=== PATIENT | male | born 1965 | race Caucasian/White ===

== ENCOUNTER 2020-05-07 21:59 | Emergency (ER) | payer OTHER ==
[2020-05-07 23:01] LABS: ABSOLUTE EOSINOPHILS # (AUTO) 0.1 10^3/uL (0.0-0.6); ABSOLUTE LYMPHOCYTES (AUTO) 1.8 10^3/uL (0.5-4.7); ABSOLUTE MONOCYTES (AUTO) 1.8 10^3/uL (0.1-1.4); ABSOLUTE NEUT (AUTO) 8.3 10^3/uL (1.7-8.2); BASOPHILS % (AUTO) 0.2 % (0-2); EOSINOPHILS % (AUTO) 0.5 % (0-6); LYMPHOCYTES % (AUTO) 14.8 % (13-45); MEAN CORPUSCULAR HEMOGLOBIN 33.3 pg (27.0-33.4); MEAN CORPUSCULAR HGB CONC 34.4 g/dL (32.0-36.0); MEAN CORPUSCULAR VOLUME 97 fl (80-97); MONOCYTES % (AUTO) 14.8 % (3-13); PLATELET COUNT 329 10^3/uL (150-450); RED BLOOD COUNT 3.31 10^6/uL (4.35-5.55); RED CELL DISTRIBUTION WIDTH 15.5 % (11.5-14.0); SEGMENTED NEUTROPHILS % (AUTO) 69.7 % (42-78); TOTAL CELLS COUNTED % (AUTO) 100 %
[2020-05-07 23:04] LABS: ALBUMIN 3.1 g/dL (3.5-5.0); ALKALINE PHOSPHATASE 122 U/L (38-126); ANION GAP 7 (5-19); ASPARTATE AMINO TRANSFERASE 44 U/L (17-59); BILIRUBIN,DIRECT 0.3 mg/dL (0.0-0.4); BILIRUBIN,TOTAL 0.5 mg/dL (0.2-1.3); BLOOD UREA NITROGEN 8 mg/dL (7-20); CALCIUM 9.2 mg/dL (8.4-10.2); CARBON DIOXIDE 27 mmol/L (22-30); CHLORIDE 101 mmol/L (98-107); GLUCOSE 130 mg/dL (75-110); POTASSIUM 3.5 mmol/L (3.6-5.0); TOTAL PROTEIN 5.8 g/dL (6.3-8.2)
--- NOTE | 2020-05-07 23:19 | RADIOLOGY REPORT (SQ) ---
EXAM DESCRIPTION: XR CHEST 1 VIEW COMPLETED DATE/TME: 05/07/2020 22:36 CLINICAL HISTORY: 55 years, Male, SOB, fever and cough COMPARISON: None. NUMBER OF VIEWS: 1 TECHNIQUE: Portable chest LIMITATIONS: None. FINDINGS: The heart size is normal. Extensive airspace opacity in the left perihilar region. No pneumothorax IMPRESSION: Left perihilar pneumonia copyright 2011 [employer]- All Rights Reserved
--- NOTE | 2020-05-07 23:43 | ER Document Report ---
ED General - General Chief Complaint: Cough Stated Complaint: COUGH Time Seen by Provider: 05/07/20 23:42 Primary Care Provider: DUANE AKHTAR MD [Primary Care Provider] - Follow up as needed Mode of Arrival: Ambulatory Information source: Patient Notes: 05/07/20 22:22 - ED Nursing Note by CAR [employer] Acct Num: [id number] : 1965 Patient Age: 55 pt arrived to ED via EMS from home c/o cough and fever. EMS reports cough has b een present for the past month and the fever started today. EMS reports pt vomited today due to excessive coughing. EMS reports pt has has a headache today. EMS reports pt has had a negative covid test over a month ago. EMS reports pt become a little dizzy upon ambulating. EMS reports v/s temp 101.8, b/p 121/76, pulse 94 and a BGL 126. EMS reports giving pt 975mg tylenol PO, 125mg solumedrol IV and an A&A neb treatment. EMS reports pt's difficulty breathing improved with neb treatment. EMS reports placing a 18g to the left AC. pt's current temp is 100.0. pt's oxygen saturation is 97% on room air. pt is able to move all extremities without difficulty. pt reports having respiratory issues for over a year. pt reports the respiratory issues began when the cleaning chemicals were changed at his place of work. p reported taking 2 months off from work and all his respiratory symptoms were completely gone. pt reports respiratory issues since being back at work. pt placed on tele monitor. blood was drawn and sent to lab. pt is able to speak in clear and complete sentences. NAD noted at this time. continue to monitor. Initialized on 05/07/20 22:22 - END OF NOTE MY NOTES 55-year-old male arrives by POV with chief complaint of fever chills and paroxysmal coughing. Patient works at the [employer]. 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 Patient reports for the last year while he was working at the [employer] he had coughing symptoms as well. During a 2-week time period between the [facility] which began in March he had no coughing symptoms. He takes methotrexate for his rheumatoid arthritis patient has paroxysmal cough on and 101.8 temperature at home. Tylenol was taken and it was decreased but he is having sweating of forehead while I was speaking to him in the room around 2345. Patient denies any coronavirus contact. His is doing well and she will be the caregiver. She and he come down to [place] for weekend stays. They will drive back to [place] to work on the week days.. Patient does admit to some chills and fever. He denies any sore throat rhinorrhea skin rash TRAVEL OUTSIDE OF THE [place] IN LAST 30 DAYS: No - HPI Onset: This morning Onset/Duration: Sudden, Persistent, Worse Quality of pain: Achy Severity: Moderate Pain Level: 2 Associated symptoms: Productive cough, Fever, Headache, Nausea, Sweating, Weakness. denies: Vomiting, Rhinnorhea, Sinus pain/drainage, Shortness of breath, Slow to respond Exacerbated by: Walking, Coughing Relieved by: Denies Similar symptoms previously: Yes Recently seen / treated by doctor: No Past Medical History - General Information source: Patient - Social History Smoking Status: Former Smoker Cigarette use (# per day): No Chew tobacco use (# tins/day): No Smoking Education Provided: No Frequency of alcohol use: Occasional Drug Abuse: None Lives with: Family Family History: Reviewed & Not Pertinent Patient has suicidal ideation: No Patient has homicidal ideation: No - Past Medical History Cardiac Medical History: Reports: Hx Hypertension Renal/ Medical History: Reports: Hx Kidney Stones Musculoskeletal Medical History: Reports Hx Arthritis Past Surgical History: Reports: Hx Orthopedic Surgery, Hx Tonsillectomy Review of Systems - Review of Systems Constitutional: See HPI, Chills, Diaphoresis, Fever, Malaise, Weakness, Recent illness EENT: See HPI, Nose congestion. denies: Nose discharge, Sinus pressure, Sinus discharge, Throat pain, Throat swelling, Mouth pain, Mouth swelling, Dental problem Cardiovascular: See HPI, Dizziness, Lightheaded Respiratory: See HPI, Cough, Wheezing Gastrointestinal: No symptoms reported Genitourinary: No symptoms reported Male Genitourinary: No symptoms reported Musculoskeletal: No symptoms reported Skin: No symptoms reported Hematologic/Lymphatic: No symptoms reported Neurological/Psychological: See HPI, Weakness, Headaches. denies: Paralysis, Seizure, Lost consciousness Physical Exam - Vital signs Vitals: Temp 100.0 F 05/07/20 22:00 Interpretation: Tachycardic, Tachypneic, Febrile - General General appearance: Alert - HEENT Head: Normocephalic, Atraumatic Eyes: Normal Extraocular movements intact: Yes Eyelashes: Normal Pupils: PERRL Ears: Normal Tympanic membrane: Normal Sinus: Normal Mouth/Lips: Normal Mucous membranes: Normal Pharynx: Normal Neck: Normal - Respiratory Respiratory status: No respiratory distress, Tachypnea Chest status: No pleuritic chest pain Breath sounds: Productive cough, Wheezing Chest palpation: Normal - Cardiovascular Rhythm: Tachycardia Heart sounds: Normal auscultation Murmur: No - Abdominal Inspection: Normal Distension: No distension Bowel sounds: Normal Tenderness: Nontender Organomegaly: No organomegaly - Rectal Prostate: Other - deferred - Genitourinary Scrotum: Other - deferred - Back Back: Normal - Extremities General upper extremity: Normal inspection General lower extremity: Normal inspection - Neurological Neuro grossly intact: Yes Cognition: Normal Orientation: AAOx4 [place] Coma Scale Eye Opening: Spontaneous Marcel Coma Scale Verbal: Oriented Marcel Coma Scale Motor: Obeys Commands [place] Coma Scale Total: 15 Speech: Normal Motor strength normal: LUE, RUE, LLE, RLE Sensory: Normal - Psychological Associated symptoms: Normal affect - Skin Skin Temperature: Warm Skin Moisture: Dry Course - Vital Signs Vital signs: Temp Pulse Resp BP Pulse Ox 98.7 F 14 136/76 H 97 05/08/20 00:01 05/08/20 00:01 05/08/20 00:01 05/08/20 00:01 - Laboratory Result Diagrams: 05/07/20 22:11 05/07/20 22:11 Laboratory results interpreted by me: 05/07/20 05/07/20 05/07/20 22:11 22:11 23:30 WBC 12.0 H RBC 3.31 L Hgb 11.0 L Hct 32.0 L RDW 15.5 H [place] % (Auto) 14.8 H Absolute Neuts (auto) 8.3 H Absolute Monos (auto) 1.8 H Sodium 135.4 L Potassium 3.5 L Glucose 130 H Total Protein 5.8 L Albumin 3.1 L Ur Leukocyte Esterase TRACE H - Diagnostic Test Radiology reviewed: Reports reviewed - left perihilar pneumonia - EKG Interpretation by Me EKG shows normal: Sinus rhythm Rate: Normal Rhythm: NSR - With [address] elevation and no ST depression and no T wave elevation and no T wave depression and axis within normal limits. Discharge - Discharge Clinical Impression: Fever Qualifiers: Fever type: unspecified Qualified Code(s): R50.9 - Fever, unspecified Pneumonia Qualifiers: Pneumonia type: due to unspecified organism Laterality: left Lung location: unspecified part of lung Qualified Code(s): J18.9 - Pneumonia, unspecified organism Condition: Good Disposition: HOME, SELF-CARE Additional Instructions: Follow-up with personal doctor this week return to ER as needed take medicine as directed encourage fluids Prescriptions: Dexamethasone [Decadron 4 Mg Tablet] 4 mg PO DAILY #5 tablet Hydrocodone Bit/Homatropine [Hycodan Syrup 5-1.5 mg/5 ml Ud Cup] 5 ml PO BID #120 ml Albuterol Sulfate [Proair HFA Inhalation Aerosol 8.5 gm MDI] 2 puff IH Q4H PRN #1 mdi PRN Reason: Azithromycin [Zithromax 250 mg Tablet] 250 mg PO ASDIR PRN #6 tablet PRN Reason: Forms: Return to Work Referrals: DUANE AKHTAR MD [Primary Care Provider] - Follow up as needed
[2020-05-07 23:55] LABS: APPEARANCE,URINE CLEAR; BILIRUBIN,URINE NEGATIVE (NEGATIVE); COLOR,URINE STRAW; GLUCOSE, URINE NEGATIVE (NEGATIVE); KETONES,URINE NEGATIVE (NEGATIVE); LEUKOCYTE ESTERASE,URINE TRACE (NEGATIVE); NITRITE,URINE NEGATIVE (NEGATIVE); PROTEIN,URINE NEGATIVE (NEGATIVE); URINE SPECIFIC GRAVITY 1.004; UROBILINOGEN,URINE NEGATIVE mg/dL (<2.0)
[2020-05-08] MEDS ORDERED: CEFTRIAXONE INJ 1000 MG VIAL IV ONE (00:09)
[2020-05-08] MEDS ORDERED: AZITHROMYCIN INJ 500 MG VIAL IV ONE (00:10)
[2020-05-08] MEDS ORDERED: DEXAMETHASONE SOD PHOS INJ 10 MG/1 ML VIAL IV ONE (00:11)
[2020-05-08] MEDS ORDERED: DEXAMETHASONE SOD PHOSPHATE INJ 4 MG/1 ML VIAL ONE ×2 (02:55→03:00)
[2020-05-08 03:16] VITALS: BP 123/81
--- NOTE | 2020-05-08 17:16 | EKG REPORT ---
SEVERITY:- NORMAL ECG - SINUS RHYTHM : Confirmed by: Nick Joyner 08-May-2020 17:15:25
== END 2020-05-08 03:29 | disposition home or self-care (01) ==
LOC: ER 21:59
DX: J18.9 Pneumonia, unspecified organism (principal); R05 Cough; R11.10 Vomiting, unspecified; R51 Headache; R42 Dizziness and giddiness; R11.0 Nausea; R53.1 Weakness; R50.9 Fever, unspecified; R61 Generalized hyperhidrosis; R53.81 Other malaise; R09.81 Nasal congestion; R06.2 Wheezing; R00.0 Tachycardia, unspecified; I10 Essential (primary) hypertension; M06.9 Rheumatoid arthritis, unspecified; Z79.899 Other long term (current) drug therapy; Z77.098 Contact with and (suspected) exposure to other hazardous, chiefly nonmedicinal, chemicals; Z20.828 Contact with and (suspected) exposure to other viral communicable diseases; Z87.891 Personal history of nicotine dependence
CPT/HCPCS: 93005; 99285; 96375; 96365; 96367; 36415; 87040; 85025; 87635; 80053; 81001; 71045; 93010; J0696; J0456; J1100; C9803